=== PATIENT | male | born 1985 | race Caucasian/White ===

== ENCOUNTER 2020-05-15 21:14 | Emergency (ER) | payer MEDICAID ==
[~2020-05-15] VITALS: Ht 167.6 cm; Wt 79.4 kg
[2020-05-15 21:15] VITALS: BP 155/94
[2020-05-15] MEDS ORDERED: CIPR7.5D LEFT EAR (21:46)
[2020-05-15] MEDS ORDERED: IBUP-1955 PO (21:46)
[2020-05-15] MEDS ORDERED: KETOROLAC TROMETHAMINE INJ 60 MG/2 ML VIAL IM ONE (21:53)
[2020-05-15] MEDS ORDERED: DEXAMETHASONE SOD PHOSPHATE 10 MG/ML VIAL ONE (21:53)
[2020-05-15] MEDS: KETOROLAC TROMETHAMINE INJ 60 MG/2 ML VIAL IM ONE (22:01)
[2020-05-15] MEDS: DEXAMETHASONE SOD PHOSPHATE 4 MG/ML VIAL IM ONE (22:01)
== END 2020-05-15 22:09 | disposition home or self-care (01) ==
LOC: ER 21:14
DX: H60.92 Unspecified otitis externa, left ear (principal); I88.8 Other nonspecific lymphadenitis; Z79.899 Other long term (current) drug therapy
CPT/HCPCS: 96372 ×2; 99284; J1100; J1885

== ENCOUNTER 2021-10-22 18:46 | Emergency (ER) | payer MEDICAID ==
[~2021-10-22] VITALS: Ht 167.6 cm; Wt 74.8 kg
[~2021-10-22 18:46] MED LIST: CIPR7.5D9 LEFT EAR; IBUP-1955 PO
--- NOTE | 2021-10-22 19:51 | NUR ---
TO ER BED 10. BIBS C/O SPIDER BITE TO R BOLAND APPROX 1 WEEK AGO. WOUND IS OPEN TO AIR, NO DISCHARGE NOTED. REDNESS NOTED AROUND WOUND. PT IS ALERT AND ORIENTED. AMBULATOEY WITH STEADY GAIT. BREATHING IS EVEN AND NON LABORED. CONNECTED TO MONITOR. AWAITING MD HUMPHREY
[2021-10-22] MEDS ORDERED: CEPH500C2 PO (20:42)
[2021-10-22] MEDS ORDERED: SULF1TAB48 PO (20:42)
--- NOTE | 2021-10-22 20:47 | NUR ---
Patient discharged to home in stable condition. rx Written and verbal after care instructions given. Patient verbalizes understanding of instruction.PT ambulatory with a steady gait
[2021-10-22 20:48] VITALS: BP 121/75
== END 2021-10-22 20:48 | disposition home or self-care (01) ==
LOC: ER 18:51
DX: S80.861A Insect bite (nonvenomous), right lower leg, initial encounter (principal); L08.9 Local infection of the skin and subcutaneous tissue, unspecified; W57.XXXA Bitten or stung by nonvenomous insect and other nonvenomous arthropods, initial encounter; Y93.89 Activity, other specified; Y92.89 Other specified places as the place of occurrence of the external cause; Y99.8 Other external cause status

== ENCOUNTER 2022-01-05 17:15 | Emergency (ER) | payer MEDICAID ==
[~2022-01-05] VITALS: Ht 170.2 cm; Wt 77.1 kg
[~2022-01-05 17:15] MED LIST changes: +CEPH500C2 PO; +SULF1TAB48 PO
--- NOTE | 2022-01-05 18:20 | NUR ---
Received pt 36 yrs male waking in c/o pain and swallen on lt foot
[2022-01-05] MEDS ORDERED: CEFTRIAXONE 1 G VIAL IM ONE (18:30)
[2022-01-05] MEDS ORDERED: CEFTRIAXONE 1 G VIAL ONE (19:20)
--- NOTE | 2022-01-05 19:30 | NUR ---
HAND OFF WILFRID RN
[2022-01-05 19:47] LABS: CALCIUM, SERUM 8.9 mg/dL (8.5-10.1); CREATININE 1.3 mg/dL (0.6-1.3)
[2022-01-05 20:00] LABS: BASOPHILS % (AUTO) 0.1 % (0.0-2.0); EOSINOPHILS % (AUTO) 0.1 % (0.0-6.0); HEMATOCRIT 42 % (39-51); HEMOGLOBIN 14.3 g/dL (13.5-17.5); LYMPHOCYTES # (AUTO) 1.1 K/uL (0.8-4.8); LYMPHOCYTES % (AUTO) 5.7 % (20.0-44.0); MEAN CORPUSCULAR HGB CONC 34 g/dl (31.0-36.0); MEAN CORPUSCULAR VOLUME 94 fL (80-96); MONOCYTES # (AUTO) 1.6 K/uL (0.1-1.30); MONOCYTES % (AUTO) 8.9 % (2.0-12.0); NEUTROPHILS # (AUTO) 15.6 K/uL (1.8-8.9); NEUTROPHILS % (AUTO) 85.2 % (43.0-81.0); PLATELET COUNT (AUTO) 208 K/uL (150-450); WHITE BLOOD COUNT (AUTO) 18.3 K/uL (4.3-11.0)
[2022-01-05] MEDS ORDERED: VANCOMYCIN 1 GM VIAL ONE (21:10)
[2022-01-05] MEDS ORDERED: VANCOMYCIN 1 GM in IV D5W 250 ML IV ONE (21:30)
[2022-01-05] MEDS ORDERED: SULF1TAB48 PO (22:00)
[2022-01-05] MEDS ORDERED: CEPH500T PO (22:00)
--- NOTE | 2022-01-05 22:15 | NUR ---
XRAY AT BEDSIDE
[2022-01-05 22:47] VITALS: BP 135/90
--- NOTE | 2022-01-05 22:47 | NUR ---
Patient discharged to home in stable condition. Written and verbal after care instructions given. Patient verbalizes understanding of instruction.
[2022-01-08] MEDS ORDERED: MORPHINE SULFATE INJ 2 MG/ML DISP.SYRIN ONE (15:18)
== END 2022-01-05 22:47 | disposition home or self-care (01) ==
LOC: ER 17:17
DX: L03.116 Cellulitis of left lower limb (principal); Z79.899 Other long term (current) drug therapy
CPT/HCPCS: 99285; 96365; 93971; 96367; 73590; 85025; 80048; 87040 ×2; 83605; 36415; J0696; J3370

== ENCOUNTER 2022-01-08 12:14 | Inpatient (IN) | payer MEDICAID ==
[~2022-01-08] VITALS: Ht 170.2 cm; Wt 77.1 kg
[~2022-01-08 12:14] MED LIST changes: +CEPH500T PO
--- NOTE | 2022-01-08 12:35 | NUR ---
BIBS C/O WORSENING LEFT LEG CELLULITIS, SEEN HERE 2 DAYS AGO. AMBULATORY, PLACED ON BED, AAOX4.
--- NOTE | 2022-01-08 13:30 | NUR ---
DR RUCKER AT BEDSIDE FOR EVAL
--- NOTE | 2022-01-08 13:56 | NUR ---
COVID SWAB COLLECTED AND SENT TO LAB
--- NOTE | 2022-01-08 13:56 | NUR ---
BLOOD DRAWN AND SWAB FOR COVID19 SENT TO LAB
[2022-01-08] MEDS ORDERED: VANCOMYCIN HCL 1.25 GM in IV D5W 260 ML IV ONE (14:00)
[2022-01-08 14:09] LABS: BASOPHILS % (AUTO) 0.1 % (0.0-2.0); EOSINOPHILS % (AUTO) 0.6 % (0.0-6.0); HEMATOCRIT 42 % (39-51); HEMOGLOBIN 14.2 g/dL (13.5-17.5); LYMPHOCYTES # (AUTO) 0.7 K/uL (0.8-4.8); LYMPHOCYTES % (AUTO) 5.3 % (20.0-44.0); MEAN CORPUSCULAR HGB CONC 34 g/dl (31.0-36.0); MEAN CORPUSCULAR VOLUME 94 fL (80-96); MONOCYTES # (AUTO) 0.9 K/uL (0.1-1.30); MONOCYTES % (AUTO) 7.5 % (2.0-12.0); NEUTROPHILS # (AUTO) 10.9 K/uL (1.8-8.9); NEUTROPHILS % (AUTO) 86.5 % (43.0-81.0); PLATELET COUNT (AUTO) 276 K/uL (150-450); WHITE BLOOD COUNT (AUTO) 12.6 K/uL (4.3-11.0)
[2022-01-08 14:28] LABS: BILIRUBIN,TOTAL 0.3 mg/dL (0.2-1.0); CALCIUM, SERUM 9.1 mg/dL (8.5-10.1); CREATININE 1.4 mg/dL (0.6-1.3); POTASSIUM 3.6 mmol/L (3.5-5.1)
[2022-01-08 14:29] LABS: ALBUMIN 3.1 g/dL (3.4-5.0); TOTAL PROTEIN, SERUM 8.2 g/dL (6.4-8.2)
[2022-01-08 14:49] LABS: C-REACTIVE PROTEIN 23.8 mg/dL (0.0-0.9)
[2022-01-08] MEDS ORDERED: MORPHINE SULFATE INJ 10 MG/ML DISP.SYRIN IV ONE (15:30)
[2022-01-08] MEDS ORDERED: MORPHINE SULFATE INJ 2 MG/ML DISP.SYRIN IV ONE (15:30)
--- NOTE | 2022-01-08 15:38 | NUR ---
[facility] CALLED SURGICAL ONCOLOGIST PAGED.
[2022-01-08] MEDS ORDERED: ACETAMINOPHEN 325 MG TABLET PO PRN (16:30)
[2022-01-08] MEDS ORDERED: MAG HYDROX/AL HYDROX/SIMETH 30 ML UDC PO PRN (16:30)
[2022-01-08] MEDS ORDERED: Z GUARD REMEDY 4 OZ OINT TP PRN (16:30)
[2022-01-08] MEDS ORDERED: ONDANSETRON HCL/PF 4 MG/2 ML VIAL IVP PRN (16:30)
[2022-01-08] MEDS ORDERED: ZOLPIDEM TARTRATE 5 MG TABLET PO PRN (16:30)
[2022-01-08] MEDS ORDERED: MAGNESIUM HYDROXIDE 30 ML UDC PO PRN (16:30)
--- NOTE | 2022-01-08 16:48 | NUR ---
GOT BED 325-2.
--- NOTE | 2022-01-08 17:22 | NUR ---
PT REPORT GIVEN TO ANÍBAL APTEL
--- NOTE | 2022-01-08 18:34 | NUR ---
PT TRANSFERRED TO [facility]IA [facility]. WARM HANDOFF GIVEN TO RN ASSIGNED.
--- NOTE | 2022-01-08 18:40 | NUR ---
ms rn received new admission from er, awake,alert,oriented x4,not in any form of distress, respirations even and unlabored,no sob noted, came in w/ leg cellulitis, denies pain at this time, will monitor patient.
--- NOTE | 2022-01-08 19:19 | NUR ---
ms rn on bed, all needs attended,no distress noted, will endorse to shift engineer for continuity of care.
[2022-01-08] MEDS: IV NS 0.9% 1,000 ML IV PRN (19:29)
[2022-01-08 20:00] VITALS: BP 115/77
[2022-01-08] MEDS: CEFTRIAXONE 1 G in IV D5W 50 ML IV SCH (20:57)
[2022-01-08] MEDS: HYDROCODONE/APAP 10/325MG TABLET PO PRN (20:58)
[2022-01-09] MEDS: VANCOMYCIN 1 GM in IV D5W 250 ML IV SCH ×2 (01:40→13:57)
--- NOTE | 2022-01-09 04:38 | NUR ---
CLOSING NOTES: ALERT AND ORIENTATED X4 ADMIITED 01/08 AT 1930 FOR CELLULITIS LEFT LEG NOTED WOUND WITH SCAB AND OPEN AREA NO DRAINAGE LEG WARM TO TOUCH SWOLLEN PAINFULL LEG RED DX CELLULITIS LEFT LEG MEDICATED X1 WITH NORCO AND EFFECTIVE FOR DICOMFORT. USING A URINAL D/T PAINFUL TO AMBULATE ATB / IV FLUID ORDERED NOTED [facility] 01/10 0100
[2022-01-09 06:48] LABS: BASOPHILS % (AUTO) 0.1 % (0.0-2.0); EOSINOPHILS % (AUTO) 0.8 % (0.0-6.0); HEMATOCRIT 36 % (39-51); HEMOGLOBIN 12.2 g/dL (13.5-17.5); LYMPHOCYTES # (AUTO) 0.9 K/uL (0.8-4.8); LYMPHOCYTES % (AUTO) 7.6 % (20.0-44.0); MEAN CORPUSCULAR HGB CONC 34 g/dl (31.0-36.0); MEAN CORPUSCULAR VOLUME 93 fL (80-96); MONOCYTES # (AUTO) 1.2 K/uL (0.1-1.30); MONOCYTES % (AUTO) 10.2 % (2.0-12.0); NEUTROPHILS # (AUTO) 9.6 K/uL (1.8-8.9); NEUTROPHILS % (AUTO) 81.3 % (43.0-81.0); PLATELET COUNT (AUTO) 263 K/uL (150-450); RED BLOOD CELL COUNT(AUTO) 3.89 MIL/uL (4.5-6.0); WHITE BLOOD COUNT (AUTO) 11.8 K/uL (4.3-11.0)
[2022-01-09 06:55] LABS: ALBUMIN 2.5 g/dL (3.4-5.0); BILIRUBIN,TOTAL 0.5 mg/dL (0.2-1.0); CALCIUM, SERUM 8.7 mg/dL (8.5-10.1); CREATININE 1.2 mg/dL (0.6-1.3); POTASSIUM 3.8 mmol/L (3.5-5.1); TOTAL PROTEIN, SERUM 6.9 g/dL (6.4-8.2)
--- NOTE | 2022-01-09 07:36 | NUR ---
MS RN OPENING NOTES RECEIVED PATIENT ASLEEP BUT AROUSABLE IN BED , A/O X 4 , ROOM AIR WITH NO SOB OR DISTRESS NOTED , NO C/O OF PAIN AND DISCOMFORT AT THIS TIME , IV ACCESS ON RIGHT ARM WITH NS @90 ML /HR INFUSING WELL , SAFETY MEASURES PROVIDED , SIDERAILS UP X 2 , CALL LIGHT WITHIN REACH AND WILL CONTINUE TO MONITOR .
[2022-01-09] MEDS: IV NS 0.9% 1,000 ML IV PRN (08:41)
--- NOTE | 2022-01-09 08:43 | NUR ---
WOUND CARE CONSULT: PT PRESENTS WITH RAISED SWELLING AND REDNESS WITH ESCHAR/WOUND TO LEFT LOWER LEG, PRESENT ON ADMISSION. DR ESQUIVEL CALLED FOR DPM CONSULT. IN AGREEMENT WITH PLAN OF CARE.
[2022-01-09] MEDS: HYDROCODONE/APAP 10/325MG TABLET PO PRN (11:40)
--- NOTE | 2022-01-09 14:00 | NUR ---
RN NOTES SEEN BY DR STALLWORTH AND WILL DO INCISION AND DRAINAGE AND CONSENT WAS SIGNED BY PATIENT OBTAINED BY MD AND ALL SUPPLIES PROVIDED TO
[2022-01-09] MEDS ORDERED: LIDOCAINE 1%-EPI 1:200,000 SDV 10 ML VIAL IJ ONE (14:30)
[2022-01-09] MEDS ORDERED: LIDOCAINE 0.5%-EPI 1:200,000 50 ML VIAL IJ ONE (14:30)
--- NOTE | 2022-01-09 14:30 | NUR ---
RN NOTES INSICION AND DRAINAGE DONE ON THE LEFT LOWER LEG WOUND BY DR STALLWORTH
[2022-01-09] MEDS: MORPHINE SULFATE INJ 2 MG/ML DISP.SYRIN IV PRN (14:56)
--- NOTE | 2022-01-09 18:35 | NUR ---
MS RN CLOSING NOTES RECEIVED PATIENT AWAKE IN BED , A/O X 4 , ROOM AIR WITH NO SOB OR DISTRESS NOTED , C/O OF PAIN AND DISCOMFORT AT THIS TIME AND PAIN MEDICATION GIVEN ORDERED , NORCO AND MORPHINE SO4 AND WITH HELP , ALL DUE MEDS GIVEN ORDERED , NEW IV ACCESS ON LEFT ARM G #22 INTACT AND SL , INCISION AND DRAINAGE DONE BY DR STALLWORTH ON THE LEFT LOWER LEG AND DRESSING DONE , FOR MRI ON THE LEFT LOWER LEG WOUND WITH CONTRAST AND CONSENT SIGNED BY THE PATIENT , SAFETY MEASURES PROVIDED , SIDERAILS UP X 2 , CALL LIGHT WITHIN REACH AND WILL CONTINUE TO MONITOR .
[2022-01-09 20:00] VITALS: BP_SYST 121; BP_SYST 129; BP_DIAS 64; BP_DIAS 70
[2022-01-09] MEDS: CEFTRIAXONE 1 G in IV D5W 50 ML IV SCH (21:29)
[2022-01-10] MEDS: VANCOMYCIN 1 GM in IV D5W 250 ML IV SCH ×3 (02:13→22:12)
--- NOTE | 2022-01-10 05:38 | NUR ---
CLOSING NOTES: ALERT AND ORIENTATED X4 LEFT LEG WRAPPED IN GAUZE NOTED DRAINAGE FOOT WARM DENIES PAIN GOOD APPETITE EATING FREQ. SLEPT WELL REPOSITIONED SELF NOTED THE ,MRI CHECK LIST IN THE CHART AND SIGNEF
[2022-01-10] MEDS: IV NS 0.9% 1,000 ML IV PRN ×2 (05:42→21:34)
[2022-01-10] MEDS: HYDROCODONE/APAP 10/325MG TABLET PO PRN ×2 (06:13→13:09)
[2022-01-10 06:31] LABS: BASOPHILS % (AUTO) 0.2 % (0.0-2.0); EOSINOPHILS % (AUTO) 2.4 % (0.0-6.0); HEMATOCRIT 40 % (39-51); HEMOGLOBIN 13.7 g/dL (13.5-17.5); LYMPHOCYTES # (AUTO) 1.2 K/uL (0.8-4.8); LYMPHOCYTES % (AUTO) 12.6 % (20.0-44.0); MEAN CORPUSCULAR HGB CONC 34 g/dl (31.0-36.0); MEAN CORPUSCULAR VOLUME 95 fL (80-96); MONOCYTES # (AUTO) 0.9 K/uL (0.1-1.30); MONOCYTES % (AUTO) 9.7 % (2.0-12.0); NEUTROPHILS # (AUTO) 7.3 K/uL (1.8-8.9); NEUTROPHILS % (AUTO) 75.1 % (43.0-81.0); PLATELET COUNT (AUTO) 298 K/uL (150-450); RED BLOOD CELL COUNT(AUTO) 4.25 MIL/uL (4.5-6.0); WHITE BLOOD COUNT (AUTO) 9.7 K/uL (4.3-11.0)
[2022-01-10 07:00] VITALS: BP 125/80
[2022-01-10 07:11] LABS: CALCIUM, SERUM 9.1 mg/dL (8.5-10.1); POTASSIUM 4.2 mmol/L (3.5-5.1)
--- NOTE | 2022-01-10 07:18 | NUR ---
MS RN NOTES RECEIVED PATIENT AWAKE IN BED. PATIENT IS A/O TIMES 4. NO PAIN NOTED. NO SOB NOTED. NO DISTRESS NOTED. IV ACCESS ON THE LAC G20 INTACT AND RUNNING NS AT 90 ML/HR. ALL NEEDS ATTENDED. SCEDULED FOR MRI THIS MORNING. LEFT LEG DRESSING INTACT. ALL SAFETY MEASURES IN PLACE. BED LOCKED IN THE LOWEST POSITION .CALL LIGHT AND TABLE IN EASY REACH. WILL CONTINUE TO MONITOR CLOSELY.
[2022-01-10] MEDS: MORPHINE SULFATE INJ 2 MG/ML DISP.SYRIN IV PRN (10:37)
[2022-01-10] MEDS ORDERED: HYDROCODONE/APAP 10/325MG TABLET PO PRN (15:30)
[2022-01-10 16:00] VITALS: BP 128/69
--- NOTE | 2022-01-10 19:30 | NUR ---
MS RN OPENING NOTES: RECEIVED PATIENT IN BED, AWAKE, A/O X4. NO S/S OF DISTRESS NOTED. NO COMPLAIN OF PAIN. CALL LIGHT WITHIN REACH. BED IN LOWEST AND LOCKED POSITION, URINAL AT BEDSIDE. WALKER AT THE BEDSIDE.
--- NOTE | 2022-01-10 19:35 | NUR ---
MS RN CLOSING NOTES PATIENT AWAKE IN BED. PATIENT IS A/O TIMES 4. NO PAIN NOTED. NO SOB NOTED. NO DISTRESS NOTED. IV ACCESS ON THE RFA G20 INTACT AND RUNNING NS AT 90 ML/HR. ALL NEEDS ATTENDED. MRI DONE THIS MORNING. LEFT LEG DRESSING INTACT. CHANGED THE DRESSING. NO ACTIVE BLEEDING NOTED. ALL DUE MEDS GIVEN ORDERED. ALL SAFETY MEASURES IN PLACE. BED LOCKED IN THE LOWEST POSITION .CALL LIGHT AND TABLE IN EASY REACH. ALL DUE MEDS GIVEN ORDERED. ENDORSED LIANA FOR KENDALL..
[2022-01-10 20:00] VITALS: BP 106/60
[2022-01-10] MEDS: CEFTRIAXONE 1 G in IV D5W 50 ML IV SCH (21:31)
[2022-01-11] MEDS: VANCOMYCIN 1 GM in IV D5W 250 ML IV SCH ×3 (06:04→21:18)
[2022-01-11 06:38] LABS: BASOPHILS % (AUTO) 0.4 % (0.0-2.0); EOSINOPHILS % (AUTO) 4.9 % (0.0-6.0); HEMATOCRIT 39 % (39-51); HEMOGLOBIN 13.2 g/dL (13.5-17.5); LYMPHOCYTES % (AUTO) 12.3 % (20.0-44.0); MEAN CORPUSCULAR HGB CONC 34 g/dl (31.0-36.0); MEAN CORPUSCULAR VOLUME 94 fL (80-96); MONOCYTES # (AUTO) 0.7 K/uL (0.1-1.30); MONOCYTES % (AUTO) 8.4 % (2.0-12.0); NEUTROPHILS # (AUTO) 5.9 K/uL (1.8-8.9); PLATELET COUNT (AUTO) 339 K/uL (150-450); RED BLOOD CELL COUNT(AUTO) 4.13 MIL/uL (4.5-6.0)
[2022-01-11 06:48] LABS: CALCIUM, SERUM 9.2 mg/dL (8.5-10.1); CREATININE 1.1 mg/dL (0.6-1.3); POTASSIUM 4.5 mmol/L (3.5-5.1)
[2022-01-11 07:00] VITALS: BP 105/69
[2022-01-11] MEDS: IV NS 0.9% 1,000 ML IV PRN (12:49)
--- NOTE | 2022-01-11 18:06 | NUR ---
SHIFT SUMMARY PATIENT IS A/O X4, ON RA SATURATING WELL. AMBULATORY WITH MIN ASSIST. TOLERATING VANCO WELL. NEW IV ACCESS ON L HAND #22G, NS RUNNING AT 90 ML/HR. WOUND CARE DONE ORDERED. SAFETY MEASURES MAINTAINED. BED IN LOWEST POSITION, BRAKES LOCKED. SIDE RAILS UP X2. CALL LIGHT WITHIN REACH. WILL ENDORSE CONTINUITY OF CARE TO ONCOMING SHIFT.
[2022-01-11] MEDS: MORPHINE SULFATE INJ 2 MG/ML DISP.SYRIN IV PRN (18:31)
--- NOTE | 2022-01-11 19:49 | NUR ---
RN OPENING NOTES RECEIVED PT SITTING IN BED, AWAKE, PLEASANT. AOx4, ABLE TO MAKE NEEDS KNOWN. ON RA AND TOLERATING WELL. NO S/SX OF RESPIRATORY DISTRESS NOTED. NO SOB NOTED. IV ACCESS IN L HAND #22G RUNNING NS @ 90 ML/HR. SAFETY PRECAUTIONS IN PLACE: BED IN LOWEST, LOCKED POSITION, SIDERAILS UPx2, AND BRAKES ON. TABLE AND CALL LIGHT WITHIN REACH. ALL NEEDS MET AT THIS TIME.
[2022-01-11 20:00] VITALS: BP 135/75
[2022-01-11] MEDS: CEFTRIAXONE 1 G in IV D5W 50 ML IV SCH (20:23)
[2022-01-12] MEDS: VANCOMYCIN 1 GM in IV D5W 250 ML IV SCH ×2 (04:27→12:33)
[2022-01-12] MEDS: IV NS 0.9% 1,000 ML IV PRN (04:28)
[2022-01-12] MEDS: MORPHINE SULFATE INJ 2 MG/ML DISP.SYRIN IV PRN (05:25)
--- NOTE | 2022-01-12 05:25 | NUR ---
RN NOTES ADMINISTERED MORPHINE FOR WOUND DRESSING CHANGE. VS WNL.
[2022-01-12 06:19] LABS: BASOPHILS % (AUTO) 0.6 % (0.0-2.0); HEMATOCRIT 39 % (39-51); HEMOGLOBIN 13.1 g/dL (13.5-17.5); LYMPHOCYTES # (AUTO) 1.1 K/uL (0.8-4.8); LYMPHOCYTES % (AUTO) 12.4 % (20.0-44.0); MEAN CORPUSCULAR HGB CONC 34 g/dl (31.0-36.0); MEAN CORPUSCULAR VOLUME 94 fL (80-96); MONOCYTES # (AUTO) 0.6 K/uL (0.1-1.30); MONOCYTES % (AUTO) 7.2 % (2.0-12.0); NEUTROPHILS # (AUTO) 6.4 K/uL (1.8-8.9); NEUTROPHILS % (AUTO) 75.8 % (43.0-81.0); PLATELET COUNT (AUTO) 404 K/uL (150-450); RED BLOOD CELL COUNT(AUTO) 4.16 MIL/uL (4.5-6.0); WHITE BLOOD COUNT (AUTO) 8.5 K/uL (4.3-11.0)
[2022-01-12 06:50] LABS: CALCIUM, SERUM 9.1 mg/dL (8.5-10.1); CREATININE 1.1 mg/dL (0.6-1.3); POTASSIUM 4.1 mmol/L (3.5-5.1)
[2022-01-12 07:00] VITALS: BP 112/73
--- NOTE | 2022-01-12 07:08 | NUR ---
MS RN OPENING NOTES RECEIVED PATIENT AWAKE IN BED, A/Ox4, ABLE TO MAKE NEEDS KNOWN. ON ROOM AIR, NO S/S OF RESPIRATORY DISTRESS. IV ACCESS L HAND #22 G RUNNING NS @90 ML/HR. INTACT AND PATENT. SKIN ISSUES: L LEG WOUND DRESSING IN PLACE NO S/S OF DRAINAGE PRESENT. SAFETY MEASURES IN PLACE: BED LOCKED AND IN LOWEST POSITION, SIDE RAILS UP x2, CALL LIGHT WITHIN REACH. WILL CONTINUE TO MONITOR.
--- NOTE | 2022-01-12 07:17 | NUR ---
RN CLOSING NOTES PT SITTING IN BED, AWAKE, PLEASANT. AOx4, ABLE TO MAKE NEEDS KNOWN. ON RA AND TOLERATING WELL. NO S/SX OF RESPIRATORY DISTRESS NOTED. NO SOB NOTED. IV ACCESS IN L HAND #22G RUNNING NS @ 90 ML/HR. ALL ORDERS CARRIED OUT. ALL NEEDS MET. PT KEPT CLEAN AND DRY. TREATED PAIN ONCE DURING SHIFT. SAFETY PRECAUTIONS IN PLACE: BED IN LOWEST, LOCKED POSITION, SIDERAILS UPx2, AND BRAKES ON. TABLE AND CALL LIGHT WITHIN REACH. WILL ENDORSE TO ONCOMING SHIFT FOR KENDALL.
[2022-01-12] MEDS ORDERED: GADOTERATE MEGLUMINE 10 MMOL/20 ML VIAL IV ONE (13:00)
[2022-01-12] MEDS ORDERED: AMOX-430 PO (14:23)
[2022-01-12] MEDS ORDERED: HYDR-3980 PO (14:23)
[2022-01-12] MEDS ORDERED: SULF1TAB48 PO (14:23)
[2022-01-12] MEDS ORDERED: ACET325T53 PO (14:23)
[2022-01-12 16:00] VITALS: BP 98/57
--- NOTE | 2022-01-12 19:30 | NUR ---
PLATFORM CONSULTANT NOTE PATIENT WISHED TO GO HOME TONIGHT. RISKS AND BENEFITS EXPLAINED, PATIENT STILL WISHED TO LEAVE HOSPITAL WITHOUT HOME HEALTH FOR WOUND CARE SET UP. PATIENT WAS GIVEN HEALTH TEACHINGS AND PAMPHLET FOR WOUND CLINIC TO MAKE APPOINTMENT OUTPATIENT FOR WOUND CARE. PATIENT SIGNED AMA FORM AND IV ACCESS REMOVED, PRESSURE DRESSING APPLIED. ID BAND REMOVED. PATIENT LEFT UNIT @1850 WITH ALL BELONGINGS. CHARGE NURSE AND MD AWARE OF PATIENT LEAVING.
== END 2022-01-12 18:50 | disposition left against medical advice (07) | DRG 364 ==
LOC: ER 12:21 → MED 18:28
PROVIDERS: ADMIT Nurse Practitioner Acute Care; ATTEND Nurse Practitioner Acute Care
PROC: 0J9P0ZZ Drainage of Left Lower Leg Subcutaneous Tissue and Fascia, Open Approach (ICD-10-PCS; principal; 2022-01-09)
DX: L03.116 Cellulitis of left lower limb (principal); E44.1 Mild protein-calorie malnutrition; L02.416 Cutaneous abscess of left lower limb; Z20.822 Contact with and (suspected) exposure to COVID-19; F17.210 Nicotine dependence, cigarettes, uncomplicated; E87.6 Hypokalemia; Z86.14 Personal history of Methicillin resistant Staphylococcus aureus infection; Z87.81 Personal history of (healed) traumatic fracture; F12.90 Cannabis use, unspecified, uncomplicated
CPT/HCPCS: 36415; 73720-TC; 80048-TC; 80053-TC; 80202-TC; 83605-TC; 83735-TC; 84100-TC; 85025-TC; 85652-TC; 86140-TC; 87040-TC; 87081-TC; 97116-TC; 97530-TC; A6253; A6403; A6407; A9575; C9803; G0378; J0696; J2270; J3370; J3490; J7030; J7060

== ENCOUNTER 2022-05-07 19:48 | Emergency (ER) | payer MEDICAID ==
[~2022-05-07] VITALS: Ht 167.6 cm; Wt 74.8 kg
[~2022-05-07 19:48] MED LIST changes: +ACET325T53 PO; +AMOX-430 PO; -CEPH500C2 PO; -CEPH500T PO; -CIPR7.5D9 LEFT EAR; +HYDR-3980 PO; -IBUP-1955 PO
[2022-05-07 20:24] VITALS: BP 128/84
[2022-05-07] MEDS ORDERED: CEPH500T PO (20:31)
[2022-05-07] MEDS ORDERED: SULF1TAB48 PO (20:31)
--- NOTE | 2022-05-07 20:48 | NUR ---
Patient discharged to home in stable condition. RX Written and verbal after care instructions given. Patient verbalizes understanding of instruction.
== END 2022-05-07 20:24 | disposition home or self-care (01) ==
LOC: ER 19:49
DX: L03.213 Periorbital cellulitis (principal); F17.200 Nicotine dependence, unspecified, uncomplicated; Z60.2 Problems related to living alone; Z79.899 Other long term (current) drug therapy

== ENCOUNTER 2022-12-21 10:05 | Emergency (ER) | payer MEDICAID ==
[~2022-12-21] VITALS: Ht 167.6 cm; Wt 74.8 kg
[~2022-12-21 10:05] MED LIST changes: +CEPH500T PO
[2022-12-21 10:47] VITALS: BP 111/77; TEMP 98.4
[2022-12-21] MEDS ORDERED: CLIN150C16 PO (11:32)
[2022-12-21] MEDS ORDERED: CLIN300C12 PO (11:32)
[2022-12-21 11:38] VITALS: O2SAT 97
== END 2022-12-21 11:39 | disposition home or self-care (01) ==
LOC: ER 10:15
DX: L03.213 Periorbital cellulitis (principal); F17.200 Nicotine dependence, unspecified, uncomplicated; Z79.899 Other long term (current) drug therapy; Z60.2 Problems related to living alone

== ENCOUNTER 2023-07-06 20:35 | Emergency (ER) | payer MEDICAID ==
[~2023-07-06 20:35] MED LIST changes: +CLIN150C16 PO; +CLIN300C12 PO
== END 2023-07-06 20:57 | disposition left against medical advice (07) ==
LOC: ER 20:43
DX: M25.569 Pain in unspecified knee (principal); Z53.21 Procedure and treatment not carried out due to patient leaving prior to being seen by health care provider

== ENCOUNTER 2023-12-19 21:26 | Emergency (ER) | payer MEDICAID ==
[~2023-12-19] VITALS: Ht 167.6 cm; Wt 74.8 kg
[2023-12-19 22:14] VITALS: BP 116/70; TEMP 98.5
[2023-12-19 22:40] VITALS: O2SAT 98
== END 2023-12-19 22:40 | disposition home or self-care (01) ==
LOC: ER 21:33
DX: L03.211 Cellulitis of face (principal); F17.200 Nicotine dependence, unspecified, uncomplicated; Z60.2 Problems related to living alone